=== PATIENT | female | born 1960 | race Caucasian/White ===

== ENCOUNTER 2025-08-12 00:03 | Emergency (ER) | payer SELFPAY ==
[~2025-08-12] VITALS: Ht 160 cm; Wt 86.0 kg
[2025-08-12 00:08] VITALS: O2SAT 98
[2025-08-12] MEDS: ACETAMINOPHEN 500MG TABLET PO ONE (00:53)
[2025-08-12] MEDS: LIDOCAINE HCL 1% 20ML VIAL INFIL ONE (01:04)
[2025-08-12] MEDS: BACITRACIN ZINC OINT UDPKT TOP ONE (01:45)
[2025-08-12] MEDS ORDERED: SODI90SP BOTHNSTRLS (04:32)
[2025-08-12] MEDS ORDERED: IBUP-1455 MT (04:33)
[2025-08-12] MEDS ORDERED: BO1 TP (04:33)
[2025-08-12 05:21] VITALS: BP 150/82; PULSE 88; RESP 16; TEMP 36.9; O2SAT 99
== END 2025-08-12 05:23 | disposition home or self-care (01) ==
LOC: ER 00:03
DX: S01.511A Laceration without foreign body of lip, initial encounter (principal); E03.9 Hypothyroidism, unspecified; I10 Essential (primary) hypertension; Z88.2 Allergy status to sulfonamides; W01.0XXA Fall on same level from slipping, tripping and stumbling without subsequent striking against object, initial encounter; Y92.481 Parking lot as the place of occurrence of the external cause; Y93.89 Activity, other specified; Y99.8 Other external cause status
CPT/HCPCS: 99284; 70450; 70486; 12011; J2003